=== PATIENT | female | born 1960 | race Caucasian/White ===

== ENCOUNTER → 2020-01-27 13:35 | Outpatient (BNVA) | payer BC, SELFPAY | PROVIDERS: Family Provider Nurse Practitioner Family; PCP Nurse Practitioner Family; Visit Provider Nurse Practitioner Family | DX: M25.512 Pain in left shoulder (principal) | CPT/HCPCS: 73030 ==

== ENCOUNTER 2020-02-24 06:49 | Outpatient (CLI) | payer BC, SELFPAY ==
--- NOTE | 2020-02-24 07:15 | MR_ITS ---
WS: [id number] MRI LEFT SHOULDER HISTORY: M25.519 Pain in unspecified shoulder COMPARISON: Radiographs 01/27/2020 TECHNIQUE: Multiplanar sequences of the shoulder joint are submitted. Hypertrophic changes involving the AC joint. There is increased soft tissue at the AC joint. There is increased T2 signal from edema and mild subacromial and subdeltoid bursal fluid distention. Small os teophytes from the distal clavicle and acromion with very minimal encroachment upon the distal supras pinatus. Mild increased signal and edema in the distal supraspinatus tendon but no full-thickness tea r. No edema or muscle atrophy. No os acromion. Biceps tendon is in normal position with very slight amount of increased fluid in the tendon sheath. Tiny amount of increased signal in the superior labrum centrally is indeterminate but unlikely a tear. No marrow edema in the glenoid or humeral head. Mild narrowing of the glenohumeral joint. MR/MR shoulder LT wo con* [id number] IMPRESSION: 1. Mild AC joint sprain. 2. Mild encroachment upon the supraspinatus by osteophytes at the AC joint. 3. Small amount of subacromial subdeltoid fluid. 4. Mild distal supraspinatus tendinopathy. 5. Tiny amount of increased signal in the superior labrum. Unlikely labral tea r.
== END 2020-02-24 06:50 | disposition home or self-care (01) ==
LOC: RADSHAW 06:54
PROVIDERS: PCP Nurse Practitioner Family; Visit Provider Orthopaedic Surgery
DX: M25.512 Pain in left shoulder (principal); S43.52XA Sprain of left acromioclavicular joint, initial encounter; X58.XXXA Exposure to other specified factors, initial encounter
CPT/HCPCS: 73221

== ENCOUNTER → 2020-11-10 08:51 | Outpatient (BNVA) | payer SELFPAY | PROVIDERS: PCP Nurse Practitioner Family; Referring Provider Nurse Practitioner Family; Visit Provider Dermatology | DX: Z01.89 Encounter for other specified special examinations (principal) | CPT/HCPCS: 36415 ==

== ENCOUNTER 2021-03-17 12:38 | Outpatient (CLI) | payer BC, SELFPAY ==
--- NOTE | 2021-03-17 13:00 | MM_ITS ---
WS: [id number] BILATERAL DIGITAL DIAGNOSTIC MAMMOGRAM MAMMOGRAPHY WITH CAD CLINICAL INFORMATION: N63.0 - Unspecified lump in unspecified breast. Palpable lump] breast. COMPARISON: March 21, 2019 TECHNIQUE: Bilateral CC, MLO, and ML views. FINDINGS: Scattered fibroglandular densities bilaterally. Palpable marker upper outer right breast posterior de pth. 9 mm focal asymmetric density adjacent to the palpable marker upper outer right breast posterior depth. Ultrasound is pending. Punctate and lucent center calcifications. Left breast is unchanged in appearance. ULTRASOUND BREAST RIGHT TECHNIQUE: Ultrasound right breast focused area of concern. CLINICAL INFORMATION: N63.0 - Unspecified lump in unspecified breast FINDINGS: Ultrasound right breast in the area of patient concern. Normal-appearing intramammary lymph node at t he 10:00 position measuring 6 mm. Adjacent to this, is a hypoechoic taller than wide lesion with a dodge spicious appearance measuring 1.0 x 0.7 x 0.8 cm at the 10:00 position 3 cm from the nipple. Recommen d further evaluation with ultrasound-guided biopsy. MM/[place] [id number] IMPRESSION: BI-RADS: 4-Suspicious Finding-Biopsy Should Be Considered FOLLOW UP: US Guided Biopsy Recommended RECOMMEND ULTRASOUND-GUIDED BIOPSY RIGHT BREAST LESION AT THE 10:00 POSITION.
--- NOTE | 2021-03-17 13:30 | US_ITS ---
WS: [id number] BILATERAL DIGITAL DIAGNOSTIC MAMMOGRAM MAMMOGRAPHY WITH CAD CLINICAL INFORMATION: N63.0 - Unspecified lump in unspecified breast. Palpable lump] breast. COMPARISON: March 21, 2019 TECHNIQUE: Bilateral CC, MLO, and ML views. FINDINGS: Scattered fibroglandular densities bilaterally. Palpable marker upper outer right breast posterior de pth. 9 mm focal asymmetric density adjacent to the palpable marker upper outer right breast posterior depth. Ultrasound is pending. Punctate and lucent center calcifications. Left breast is unchanged in appearance. ULTRASOUND BREAST RIGHT TECHNIQUE: Ultrasound right breast focused area of concern. CLINICAL INFORMATION: N63.0 - Unspecified lump in unspecified breast FINDINGS: Ultrasound right breast in the area of patient concern. Normal-appearing intramammary lymph node at t he 10:00 position measuring 6 mm. Adjacent to this, is a hypoechoic taller than wide lesion with a dodge spicious appearance measuring 1.0 x 0.7 x 0.8 cm at the 10:00 position 3 cm from the nipple. Recommen d further evaluation with ultrasound-guided biopsy. US/US breast RT limited* [id number] IMPRESSION: BI-RADS: 4-Suspicious Finding-Biopsy Should Be Considered FOLLOW UP: US Guided Biopsy Recommended RECOMMEND ULTRASOUND-GUIDED BIOPSY RIGHT BREAST LESION AT THE 10:00 POSITION.
== END 2021-03-17 12:39 | disposition home or self-care (01) ==
PROVIDERS: PCP Nurse Practitioner Family; Visit Provider Nurse Practitioner Family
DX: N63.11 Unspecified lump in the right breast, upper outer quadrant (principal); N63.20 Unspecified lump in the left breast, unspecified quadrant
CPT/HCPCS: 76642; 77066

== ENCOUNTER 2021-03-30 20:00 | Outpatient (CLI) | payer BC, SELFPAY | END 2021-03-30 20:01 | disposition home or self-care (01) | LOC: SLEEP 03-31 05:45 | PROVIDERS: PCP Nurse Practitioner Family; Visit Provider Nurse Practitioner Family | DX: G47.30 Sleep apnea, unspecified (principal) | CPT/HCPCS: 95810 ==

== ENCOUNTER 2021-04-05 12:38 | Outpatient (CLI) | payer BC, SELFPAY ==
--- NOTE | 2021-04-05 13:00 | US_ITS ---
WS: [id number] ULTRASOUND-GUIDED RIGHT BREAST BIOPSY HISTORY: N63.10 - Unspecified lump in the right breast, COMPARISON: 03/17/2021 Procedure, risks and complications are explained to the patient. Medications are reviewed. Consent is obtained. The mass in the RIGHT breast is localized with ultrasound. Mass localizes at 10:00. Skin is cleansed with ChloraPrep and anesthetized with 1% buffered lidocaine. Small dermatome is made. Under sterile c onditions mass is biopsied with a 14-gauge Achieve needle. Multiple core biopsies are performed. Mate rial placed in formalin and sent to pathology for review. No complications encountered. Breast tissue marker (Bard ultrasound enhanced ribbon): Single. Patient left the radiology suite with no complications. Patient is [place] [facility] [place] [facility] with any concerns. US/[place] [id number] IMPRESSION: 1. Uncomplicated core needle biopsy RIGHT breast biopsy of the mass at 10:00, 3 cm from the nipple. PATHOLOGY: Ductal carcinoma in situ, grade 2. No invasive carcinoma. Breast pro file and ancillary studies to be reported later. RECOMMENDATION: Surgical and oncologic evaluation.
[2021-04-12 09:18] LABS: Miscellaneous Test See Scanned Lab Rpt
== END 2021-04-05 12:39 | disposition home or self-care (01) ==
LOC: RAD 12:40
PROVIDERS: PCP Nurse Practitioner Family; Visit Provider Nurse Practitioner Family
DX: N63.11 Unspecified lump in the right breast, upper outer quadrant (principal); D05.11 Intraductal carcinoma in situ of right breast
CPT/HCPCS: 19083; 88305; 88361; 88374

== ENCOUNTER → 2021-04-16 09:51 | Outpatient (BNVA) | payer BC, SELFPAY | PROVIDERS: PCP Nurse Practitioner Family; Referring Provider Nurse Practitioner Family; Visit Provider Surgery | DX: D05.11 Intraductal carcinoma in situ of right breast (principal); Z11.52 Encounter for screening for COVID-19; N63.10 Unspecified lump in the right breast, unspecified quadrant | CPT/HCPCS: 87635 ==

== ENCOUNTER → 2021-04-21 11:12 | Outpatient (BNVA) | payer BC, SELFPAY | PROVIDERS: PCP Nurse Practitioner Family; Visit Provider Nurse Practitioner Family | DX: R19.7 Diarrhea, unspecified (principal); R39.9 Unspecified symptoms and signs involving the genitourinary system; Z11.52 Encounter for screening for COVID-19; R50.9 Fever, unspecified | CPT/HCPCS: 83630; 87493; 87506; 87635 ==

== ENCOUNTER → 2021-04-28 10:01 | Outpatient (BNVA) | payer BC, SELFPAY | PROVIDERS: PCP Nurse Practitioner Family; Visit Provider Surgery | DX: Z20.822 Contact with and (suspected) exposure to COVID-19 (principal); D05.11 Intraductal carcinoma in situ of right breast | CPT/HCPCS: 87635 ==

== ENCOUNTER 2021-05-05 06:57 | Day surgery (SDC) | payer BC, SELFPAY ==
[2021-04-20 10:48] VITALS: BMI 30.1
--- NOTE | 2021-05-05 | US_ITS ---
WS: [id number] ULTRASOUND-GUIDED RIGHT BREAST NEEDLE LOCALIZATION HISTORY: needle localization Procedure, risks and complications were explained to the patient. Consent is obtained. Skin is cleansed with ChloraPrep and anesthetized with 1% buffered lidocaine. Needle and guidewire pl aced to the area of concern with no complications. Ultrasound guidance performed during the needle lo calization. Guidewire is left within the lesion. Guidewire secured and no complications encountered. Patient is being transported to the OR suite. Localization is of the mass at 10:00, 3 cm from the nip ple. Specimen radiograph is also reviewed. Lesion appears to be within the specimen although difficult to visualize. RECOMMENDATIONS: Follow-up with Dr. Garcia and oncology. US/US breast surgical specimen IMPRESSION: 1. Uncomplicated wire localization of a mass at 10:00, 3 cm from the nipple. PATHOLOGY RESULTS: Ductal carcinoma in situ, the superior medial margin is posi tive. Lymphovascular invasion identified.
[2021-05-05 07:10] VITALS: BP 136/92; PULSE 79; RESP 18; TEMP 36.2; O2SAT 96
[2021-05-05] MEDS: sodium chloride 0.9% 1,000 ML 30 ML IV (07:33)
--- NOTE | 2021-05-05 07:38 | ECG_ITS ---
[facility] Test Date: 2021-05-05 Pat Name: Urszula Umaña Department: Room: Gender: Female In Service Educator: : 1960 Requested By: Frank Calles Order Number: [id number] Shilpa MD: JACQUIE KERNS Measurements Intervals [place] Rate: 68 P: 43 MS: 150 QRS: 24 QRSD: 103 T: 41 QT: 405 QTc: 433 Interpretive Statements SINUS RHYTHM No previous ECG available for comparison Electronically Signed On 05-05-2021 19:29:28 CDT by JACQUIE KERNS [id number]
--- NOTE | 2021-05-05 07:46 | US_ITS ---
WS: [id number] ULTRASOUND-GUIDED RIGHT BREAST NEEDLE LOCALIZATION HISTORY: needle localization Procedure, risks and complications were explained to the patient. Consent is obtained. Skin is cleansed with ChloraPrep and anesthetized with 1% buffered lidocaine. Needle and guidewire pl aced to the area of concern with no complications. Ultrasound guidance performed during the needle lo calization. Guidewire is left within the lesion. Guidewire secured and no complications encountered. Patient is being transported to the OR suite. Localization is of the mass at 10:00, 3 cm from the nip ple. Specimen radiograph is also reviewed. Lesion appears to be within the specimen although difficult to visualize. RECOMMENDATIONS: Follow-up with Dr. Garcia and oncology. US/[place] [id number] IMPRESSION: 1. Uncomplicated wire localization of a mass at 10:00, 3 cm from the nipple. PATHOLOGY RESULTS: Ductal carcinoma in situ, the superior medial margin is posi tive. Lymphovascular invasion identified.
--- NOTE | 2021-05-05 07:54 | W.PM.OPSUD ---
Surgery/Procedure H&P Update DATE OF PROCEDURE: May 05, 2021 DATE H&P PERFORMED: 04/16/21 H&P UPDATE INFORMATION: I have reviewed H&P completed within last 30 days, I have examined patient prior to procedure and No changes to prior documentation PREOP DIAGNOSIS: DCIS right breast PLANNED PROCEDURE: Operation Date: 05/05/21 11:30 Proposed Procedures p Breast Biopsy Needle Localization [id number] D05.11(Right) - Cory Garcia MD s Right Breast Lumpectomy(Right) - Cory Garcia MD
--- NOTE | 2021-05-05 08:12 | ANES.PREANE2 ---
Pre-Anesthetic Assessment Pre-Anesthetic Assessment: Height/Weight: Height 1.65 m Weight 89.811 kg Temp Pulse Resp BP Pulse Ox 97.2 F L 79 18 136/92 96 05/05/21 07:10 05/05/21 07:10 05/05/21 07:10 05/05/21 07:10 05/05/21 07:10 Preop Diagnosis: DCIS right breast Proposed Procedure: Operation Date: 05/05/21 11:30 Proposed Procedures p Breast Biopsy Needle Localization [id number] D05.11(Right) - Cory Garcia MD s Right Breast Lumpectomy(Right) - Cory Garcia MD Was Beta Ligia taken within 24 hours: N/A Was Clonidine taken within 24 hours: N/A Last intake: Intake Last Liquid Date 05/04/21 Last Liquid Time 23:15 Last Solid Date 05/04/21 Last Solid Time 23:15 Social: Social History: Tobacco and No alcohol Exam: Pre-Anes Outpt Exam: alert, oriented x 3 and regular rate & rhythm Airway: Submandibular: WNL Cervical ROM: WNL MP: 2 Dentition: False Pulmonary: Pulmonary: COPD and Sleep apnea Musc/skel: Musc/skel: YAJAIRA/CHRISSIE Anesthetic Plan: Anesthesia: Choice Risk of > 500 ml blood loss (7ml/kg in children): No Meds/Allergies Current Medications: Current Medications Generic Name Dose Route Start Last Admin Trade Name Freq PRN Reason Stop Dose Admin Sodium Chloride 1,000 mls @ 30 ml s/hr 05/05/21 07:15 05/05/21 07:33 Sodium Chloride 0.9% IV 05/06/21 07:14 30 mls/hr .Q24H SHAWN Administration PFSH Anesthesia PFSH: Medical History (Updated 04/21/21 @ 09:55 by YANICK Carrasco) DDD (degenerative disc disease), cervical Diarrhea Diarrhea Ductal carcinoma in situ (DCIS) of right breast Sleep apnea UTI symptoms UTI symptoms Vitamin D deficiency Surgical History History of appendectomy History of hysterectomy History of knee surgery Status post colonoscopy Social History Smoking and tobacco status: never smoked Second hand smoke exposure: No Smoking risk assessment/counseling performed?: No Alcohol intake: never Desire information about alcohol rehabilitation?: No Counseling given: No Desire information about substance/drug rehabilitation?: No Counseling given: No Data Anesthesia Cardiac Studies: No Data to Display
[2021-05-05] MEDS: lidocaine 1% INJ 20 mL SUBCUT (09:32)
--- NOTE | 2021-05-05 13:33 | PM.OP ---
Operative Report Date of procedure: May 05, 2021 Pre-op Diagnosis: DCIS right breast 10 o'clock position 3 cm from the nipple Post-op diagnosis: same Procedure Done: Wire localization lumpectomy right breast Specimens removed/disposition: Right breast mass 10 o'clock position short stitch superior, long stitch lateral Surgeon: Cory Garcia Anesthesia: General Condition: stable Disposition: PACU Procedure: The wire localization of the mammographic abnormality was performed by the radiologist under ultrasound guidance and the patient was transferred to operating room and placed under MAC after IV antibiotic had been administered. The right breast was prepped and draped in a manner . A curvilinear incision was made over the areolar margin at 10'o clock position, subcutaneous tissue was divided and skin flaps were raised superiorly and inferiorly. The localization wire was grasped through the incision and using electrocautery the wire along with the breast tissue containing mammographic abnormality was dissected free from the surrounding tissue. Using 2-0 silk suture, short stitch was placed superiorly and a long stitch was placed laterally.The wound was irrigated with saline, hemostasis ensured with electrocautery and subcutaneous tissues approximated using 3-0 running Vicryl suture and skin was closed using running subcuticular 4-0 Monocryl sutures and Dermabond. 1% lidocaine with 0.5% Marcaine was infiltrated at the lumpectomy cavity. Fluffs were used for pressure dressing. Patient was transferred to recovery room and stable condition The lumpectomy specimens were sent to mammography to obtain radiological confirmation of complete excision of the mammographic abnormality.
[2021-05-05 13:43] VITALS: BP 146/102; PULSE 71; RESP 16; TEMP 36.4; O2SAT 96
[2021-05-05 13:45] VITALS: BP 157/99; PULSE 72; RESP 17; O2SAT 95
[2021-05-05 13:50] VITALS: BP 149/92; PULSE 71; RESP 17; TEMP 36.4; O2SAT 96
[2021-05-05 14:00] VITALS: BP 119/80; PULSE 72; RESP 18; TEMP 36.4; O2SAT 95
[2021-05-05 14:14] VITALS: BP 126/82; PULSE 70; RESP 18; TEMP 36.4; O2SAT 97
--- NOTE | 2021-05-05 14:16 | ANE.PACU2 ---
Inpatient post-anesthesia follow up: Airway intact: Yes Vital signs: Temperature 97.5 F Pulse Rate 70 Respiratory Rate 18 Blood Pressure 126/82 Pulse Oximetry 97 Oxygen Delivery Me thod Room Air Oxygen Flow Rate Fraction of Inspir ed Oxygen Hydration adequate: Yes Nausea and vomiting: No Pain level: 2 Mental status: Baseline
== END 2021-05-05 14:34 | disposition home or self-care (01) ==
PROVIDERS: PCP Nurse Practitioner Family; Visit Provider Surgery
PROC: (CPT 19301; principal; 2021-05-05 11:20)
PROC: (CPT 19301; 2021-05-05 11:20)
DX: C50.911 Malignant neoplasm of unspecified site of right female breast (principal); J44.9 Chronic obstructive pulmonary disease, unspecified; G47.30 Sleep apnea, unspecified; M19.90 Unspecified osteoarthritis, unspecified site
CPT/HCPCS: 19301; 19285; 88305; 93005; C1889; J0690; J2405; J2704; J3010; J3490; J7030

== ENCOUNTER → 2021-05-13 08:19 | Outpatient (BNVA) | payer BC, SELFPAY | PROVIDERS: PCP Nurse Practitioner Family; Visit Provider Surgery | DX: Z11.52 Encounter for screening for COVID-19 (principal) | CPT/HCPCS: 87635 ==

== ENCOUNTER 2021-05-19 08:08 | Day surgery (SDC) | payer BC, SELFPAY ==
[2021-05-18 09:29] VITALS: BMI 29.6
[2021-05-19] VITALS (7 sets, daily range): BP systolic 118–150; BP diastolic 63–94; PULSE 62–78; RESP 17–18; TEMP 36.3–37.1; O2SAT 94–98
--- NOTE | 2021-05-19 09:17 | W.PM.OPSUD ---
Surgery/Procedure H&P Update DATE OF PROCEDURE: May 19, 2021 DATE H&P PERFORMED: 05/11/21 H&P UPDATE INFORMATION: I have reviewed H&P completed within last 30 days, I have examined patient prior to procedure and No changes to prior documentation PREOP DIAGNOSIS: Positive margin DCIS right breast PLANNED PROCEDURE: Operation Date: 05/19/21 09:55 Proposed Procedures p Reexcision of margins of right breast under mac 37890 N63.0(Right) - Cory Garcia MD
[2021-05-19] MEDS: sodium chloride 0.9% 1,000 ML 30 ML IV (09:34)
--- NOTE | 2021-05-19 09:36 | ANES.PREANE2 ---
Pre-Anesthetic Assessment Pre-Anesthetic Assessment: Height/Weight: Height 1.73 m Weight 88.451 kg Temp Pulse Resp BP Pulse Ox 98.7 F 74 18 118/80 98 05/19/21 09:34 05/19/21 09:34 05/19/21 09:34 05/19/21 09:34 05/19/21 09:34 Preop Diagnosis: Positive margin DCIS right breast Proposed Procedure: Operation Date: 05/19/21 09:55 Proposed Procedures p Reexcision of margins of right breast under mac 31057 N63.0(Right) - Cory Garcia MD Familial anesthetic complications: None Was Beta Ligia taken within 24 hours: N/A Was Clonidine taken within 24 hours: N/A Last intake: Intake Last Liquid Date 05/18/21 Last Liquid Time 22:30 Last Solid Date 05/18/21 Last Solid Time 22:30 Social: Social History: Tobacco and No alcohol Exam: Pre-Anes Outpt Exam: alert, oriented x 3, clear to auscultation bilaterally and regular rate & rhythm Airway: Cervical ROM: WNL MP: 2 Dentition: False Musc/skel: Musc/skel: OA/DJD Anesthetic Plan: ASA status: 2 Anesthesia: MAC Risk of > 500 ml blood loss (7ml/kg in children): No Meds/Allergies Current Medications: Current Medications Generic Name Dose Route Start Last Admin Trade Name Freq PRN Reason Stop Dose Admin Sodium Chloride 1,000 mls @ 30 ml s/hr 05/19/21 08:30 05/19/21 09:34 Sodium Chloride 0.9% IV 05/20/21 08:29 30 mls/hr .Q24H SHAWN Administration PFSH Anesthesia PFSH: Medical History (Updated 05/13/21 @ 08:08 by YANICK Carrasco) DDD (degenerative disc disease), cervical Diarrhea Ductal carcinoma in situ (DCIS) of right breast Severe sleep apnea Sleep apnea Vitamin D deficiency Surgical History (Updated 05/19/21 @ 09:21 by Cory Garcia MD) History of appendectomy History of hysterectomy History of knee surgery S/P lumpectomy, right breast (05/05/21) Reexcision for positive margin 05/19/2021 Status post colonoscopy Social History Smoking and tobacco status: current every day smoker Second hand smoke exposure: No Smoking risk assessment/counseling performed?: No Alcohol intake: never Desire information about alcohol rehabilitation?: No Counseling given: No Desire information about substance/drug rehabilitation?: No Counseling given: No Data Anesthesia Cardiac Studies: No Data to Display
[2021-05-19] MEDS: lidocaine 1% INJ 20 mL INJECTION (10:37)
--- NOTE | 2021-05-19 13:16 | ANE.PACU2 ---
Inpatient post-anesthesia follow up: Airway intact: Yes Vital signs: Temperature 97.4 F Pulse Rate 76 Respiratory Rate 18 Blood Pressure 125/63 Pulse Oximetry 98 Oxygen Delivery Me thod Room Air Oxygen Flow Rate 5 Fraction of Inspir ed Oxygen Hydration adequate: Yes Nausea and vomiting: No Pain level: 3 Mental status: Baseline
--- NOTE | 2021-05-19 13:46 | PM.OP ---
Operative Report Date of procedure: May 19, 2021 Pre-op Diagnosis: Positive margin DCIS right breast
--- NOTE | 2021-05-19 15:34 | PM.OP ---
Operative Report Date of procedure: 05/19/2021 Pre-op Diagnosis: Positive margin DCIS right breast Post-op diagnosis: same Procedure Done: Reexcision of margins of lumpectomy cavity right breast Specimens removed/disposition: 1. Medial margin, outer edge inked 2. Superior margin, outer edge inked 3. Anterior margin, outer edge ink 4. Lateral margin, outer edge inked Surgeon: Cory Garcia Anesthesia: MAC Condition: stable Disposition: PACU Procedure: The patient was taken to the operating room and placed under MAC after IV antibiotic had been administered. The existing incision on the right breast was opened using 15 blade, sutures were cut and the lumpectomy cavity was reopened. There was drainage of small amount of seroma. 1 cm shave margins were obtained from the medial, superior, anterior and lateral aspect of the lumpectomy cavity and the outer edge was inked. The wound was irrigated with saline and subcutaneous tissues approximated using interrupted 3-0 Vicryl suture and skin was closed using running subcuticular 4-0 Monocryl suture and Dermabond. The patient was extubated and transferred to recovery room in stable condition.
== END 2021-05-19 11:41 | disposition home or self-care (01) ==
PROVIDERS: PCP Nurse Practitioner Family; Visit Provider Surgery
PROC: (CPT 19301; principal; 2021-05-19 09:55)
DX: N64.89 Other specified disorders of breast (principal)
CPT/HCPCS: 19301; 88307; J0690; J2250; J2405; J2704; J3010; J3490; J7030

== ENCOUNTER 2021-06-18 08:53 | Outpatient (CLI) | payer BC, SELFPAY ==
--- NOTE | 2021-06-18 16:26 | ONC CON_ITS ---
Dr. Castro New Patient Note Patient: Urszula Umaña Unit #: [id number]: 1960 Dicatated By: Jad Castro M.D.Date of Visit: Jun 18, 2021 Onc MED New Patient/Consult Referring Physician: Dr. ROXANA GR M.D. Chief Complaint: Breast cancer. History of Present Illness: This is a 60-year-old woman with ductal carcinoma in situ of the right breast, ER/ND positive. She had presented with a knot in her right breast, in retrospect thought to perhaps have been an enlarged lymph node. She was evaluated with diagnostic mammogram and right breast ultrasound on 03/17/2021. By that time the lump was getting smaller. Mammogram showed a focal asymmetric density adjacent to the palpable marker in the upper outer quadrant right breast posterior depth measuring 9 mm. Ultrasound showed a normal-appearing intramammary lymph node at the 10 o'clock position measuring 6 mm. Adjacent to it at the 10 o'clock position 3 cm from the nipple was a hypoechoic taller than wide lesion with suspicious appearance measuring 1.0 x 0.7 x 0.8 cm. It was BI-RADS 4, suspicious. Ultrasound directed biopsy of the right breast on 04/05/2021 showed grade 2 ductal carcinoma in situ. There is no invasive carcinoma identified. The breast prognostic profile showed ER positive at 99% and ND positive at 99%. The Ki-67 was 9%. It was negative for overexpression of HER-2/christian. She then underwent right breast lumpectomy on 05/05/2021. Pathology again showed grade 2 ductal carcinoma in situ. It was reported that no invasive carcinoma was identified, though the report also reports that lymphovascular invasion was identified identified. The superior-medial margin was positive. With that finding, she underwent reexcision lumpectomy on 05/19/2021. The final margins were negative for malignancy. She is seen for further management. She has been feeling pretty good generally, though she does complain that she gets tired. She also does not sleep well at night. She apparently was found to have severe obstructive sleep apnea, but she has not yet been able to get a titration study for CPAP. She has normal activity, though. ECOG score is 0. She has good appetite. She recently lost some weight due to suspected food poisoning. She has not had fever. She does have hot flashes/sweating. She underwent hysterectomy/bilateral salpingo-oophorectomy in 1999. Prior to that she had received oral contraceptives, she did not have any hormone replacement therapy. She had her first at age 17. She reports having a smoker's cough. She does not complain of shortness of breath or chest pain. She has no GI complaints other than a little heartburn at times. She does report having some bladder leakage. She has arthritis, mainly in her knees and in her right elbow. She does not complain of headache or dizziness. She sometimes has numbness. She has been having some depression. Past Medical History: Her medical history includes degenerative arthritis, obstructive sleep apnea, and vitamin D deficiency. Past Surgical History: She underwent ultrasound directed right breast biopsy on 04/05/2021, right breast lumpectomy on 05/05/2021, and reexcision lumpectomy on 05/19/2021. Her other surgical/procedural history includes appendectomy, arthroscopic left knee surgery, colonoscopy in 2015, and hysterectomy/bilateral salpingectomy-oophorectomy in 1999. Medications: [facility] Ibuprofen 800 mg (of 200 mg) Tablet Oral PRN Allergies: HYDROcodone Bitartrate Social History: Ms. Umaña is . She has a history of smoking a pack and half of cigarettes daily for 40 years. She drinks alcohol occasionally. Family History: Father of lung cancer at age 76. Mother with heart disease at age 78. She has 2 brothers, both with hypertension. One sister is in good health. There is no history of breast or ovarian cancer in the family. Review Of Symptoms: Constitutional - She complains that she gets tired, she has normal activity. Her appetite is generally good. She recently had some weight loss associated with food poisoning. She has not had fever. She does have hot flashes and sweating. ECOG score is 0, Eyes - No change in vision, ENMT - No hearing loss or tinnitus. She complains that her sinuses are always stopped up at night. No mouth sores. No sore throat or difficulty swallowing, Hematologic/Lymphatic - No abnormal bruising or bleeding, Respiratory - No shortness of breath. She has a smoker's cough. No pleuritic pain or hemoptysis, Cardiovascular - No angina pain. No palpitations, Gastrointestinal - No nausea or vomiting. She has a little bit of heartburn. No diarrhea or constipation. No blood in the stool or black stools, Genitourinary (F) - No dysuria or hematuria. No urinary frequency. She does report having some leakage, Musculoskeletal - She has joint pain, mainly in the knees and right elbow, Integumentary - No skin rash or other skin changes, Neurologic - No headache or dizziness. She sometimes has numbness. No other focal neurologic symptoms, Psychiatric - No anxiety. She has some depression. She has difficulty sleeping. She had a sleep study which showed severe obstructive sleep apnea, but she has not yet been able to get a titration study for CPAP. Vital Signs: Performed on Jun 18, 2021 10:19: 2, 0, 30.05 (HIGH), 2.03 sq.m, 68 in, 96 %, 72 /min, 17 /min, 128/79 mm(hg), 96 F (LOW), and 197.6 lbs (HIGH). Physical Examination: Constitutional - She looks pretty good generally, Eyes - Sclerae nonicteric. Conjunctivae clear, ENMT - No lesions noted in the oral cavity, Neck - No mass or thyromegaly, Hematologic/Lymphatic - No cervical or clavicular adenopathy, Respiratory - Lungs are clear but breath sounds are diminished bilaterally, Cardiovascular - Heart rhythm is regular. There is no murmur, gallop, or rub noted, Breasts - There are no breast masses noted. There is no axillary adenopathy, Abdomen - Soft and non-tender. Liver and spleen are not enlarged. There is no abdominal mass or ascites noted and there is no inguinal adenopathy, Back/Spine - No spine or CVA tenderness noted, Extremities - No edema. Dorsalis pedis pulses are palpable bilaterally, Integumentary - No rashes. No suspicious skin lesions noted, Neurologic - No focal neurologic deficits noted. Problem List: 1. Grade 2 ductal carcinoma in situ of the right breast. 2. Degenerative arthritis. 3. Obstructive sleep apnea. 4. She has a significant smoking history and based on her exam, she likely has COPD. Problems Addressed with this Encounter and Plan: 1. Patient with grade 2 ductal carcinoma in situ of the right breast, ER/ND positive. She underwent right breast lumpectomy on 05/05/2021 followed by reexcision lumpectomy on 05/19/2021. The final margins were negative. The pathology results were reviewed with the patient, and we discussed the clinical implications. She has ductal carcinoma in situ which has been completely resected. As there is potential risk for recurrence, she may potentially benefit with adjuvant radiation and/or adjuvant hormonal therapy. With regard to the radiation, I am going to request a Decision Rx study. If that shows higher risk disease, adjuvant radiation will be recommended. If it is low risk, she will have the option to omit it. In either case, there is also the potential for adjuvant hormonal therapy which has been shown to reduce the risk for risk of ipsilateral recurrence or development of contralateral breast cancer, and it potentially reduces the need for treatment of breast cancer in the future. However, it has not shown any survival benefit. The options for adjuvant hormonal therapy would include an aromatase inhibitor or tamoxifen, and I reviewed potential side effects associated with both forms of therapy. At this point I will just plan to have further discussion with her when the Decision Rx results are available. 2. She has a significant smoking history and I did discuss smoking cessation. I also will recommend a lung cancer screening CT. Signed By: Jad Castro M.D. <<Signature on File>>
== END 2021-06-18 08:54 | disposition home or self-care (01) ==
LOC: ONCMED 08:56
PROVIDERS: PCP Nurse Practitioner Family; Visit Provider Internal Medicine Medical Oncology
DX: D05.11 Intraductal carcinoma in situ of right breast (principal); G47.33 Obstructive sleep apnea (adult) (pediatric); M19.90 Unspecified osteoarthritis, unspecified site; E55.9 Vitamin D deficiency, unspecified; F17.210 Nicotine dependence, cigarettes, uncomplicated
CPT/HCPCS: 99205

== ENCOUNTER 2021-07-09 11:02 | Outpatient (CLI) | payer BC, SELFPAY ==
--- NOTE | 2021-07-09 13:13 | ONC FU_ITS ---
Dr. Castro Patient Follow-Up Note Patient: Urszula Umaña Unit #: [id number]: 1960 Dicatated By: Jad Castro M.D.Date of Visit:Jul 09, 2021 Onc Med Follow-up/Prog Note Chief Complaint: Breast cancer. History of Present Illness: This is a 60-year-old woman with ductal carcinoma in situ of the right breast, ER/VT positive. She had presented with a knot in her right breast, in retrospect thought to perhaps have been an enlarged lymph node. She was evaluated with diagnostic mammogram and right breast ultrasound on 03/17/2021. By that time the lump was getting smaller. Mammogram showed a focal asymmetric density adjacent to the palpable marker in the upper outer quadrant right breast posterior depth measuring 9 mm. Ultrasound showed a normal-appearing intramammary lymph node at the 10 o'clock position measuring 6 mm. Adjacent to it at the 10 o'clock position 3 cm from the nipple was a hypoechoic taller than wide lesion with suspicious appearance measuring 1.0 x 0.7 x 0.8 cm. It was BI-RADS 4, suspicious. Ultrasound directed biopsy of the right breast on 04/05/2021 showed grade 2 ductal carcinoma in situ. There is no invasive carcinoma identified. The breast prognostic profile showed ER positive at 99% and VT positive at 99%. The Ki-67 was 9%. It was negative for overexpression of HER-2/christian. She then underwent right breast lumpectomy on 05/05/2021. Pathology again showed grade 2 ductal carcinoma in situ. It was reported that no invasive carcinoma was identified, though the report also reports that lymphovascular invasion was identified identified. The superior-medial margin was positive. With that finding, she underwent reexcision lumpectomy on 05/19/2021. The final margins were negative for malignancy. I had seen her initially on 06/18/2021. I recommended that she have additional evaluation with a DCISionRT study. Those results have just become available, and it showed a recurrence score of 2.3, low risk, corresponding to a 10-year total recurrence risk of 11% with breast conserving surgery alone and 7% risk with breast conserving surgery and radiation. The 10-year risk for invasive cancer only was reported at 6% with surgery alone and 4% with surgery and radiation. In the meantime, I also had further discussion with the pathologist regarding the reported presence of lymphovascular invasion and after further review the diagnosis was amended to ductal carcinoma in situ with microinvasion. She is seen for review of the DCISionRT results and to discuss further management of her breast cancer. Her other medical illnesses have been limited to obstructive sleep apnea, degenerative arthritis, and vitamin D deficiency. Her prior surgeries include hysterectomy and bilateral salpingo-oophorectomy in 1999. She did not receive any hormone replacement therapy. Medications: [facility] Ibuprofen 800 mg (of 200 mg) Tablet Oral PRN Allergies: HYDROcodone Bitartrate Vital Signs: Performed on Jul 09, 2021 11:20 Height - 68.00 in Weight - 198.4 lbs (HIGH) BSA - 2.04 sq.m BMI - 30.17 (HIGH) Temperature - 97.2 F (LOW) Pulse - 84 /min Respiration - 17 /min BP - 135/86 mm(hg) Pain - 0 Fatigue - 6 Problem List: 1. Ductal carcinoma in situ of the right breast, grade 2, with microinvasion, ER/VT positive. 2. Degenerative arthritis. 3. Obstructive sleep apnea. 4. She has a significant smoking history and based on her exam, she likely has COPD. Problems Addressed with this Encounter and Plan: Patient with ductal carcinoma in situ of the right breast, grade 2, with microinvasion, ER/VT positive. She underwent right breast lumpectomy on 05/05/2021 followed by reexcision lumpectomy on 05/19/2021. The final margins were negative. Her DCISionRT was low risk corresponding to a 10-year total recurrence risk of 11% with breast conserving surgery alone and 7% risk with breast conserving surgery and radiation. The 10-year risk for invasive cancer only was reported at 6% with surgery alone and 4% with surgery and radiation. The results of the DCISionRT study and the final pathology were reviewed with the patient. We discussed the clinic implications and recommendations for further management. Given the low risk DCISionRT score and the limited benefit with adjuvant radiation, she prefers to omit the radiation therapy. With a diagnosis amended to DCIS with microinvasion, she is recommended to have adjuvant endocrine therapy, initially with an aromatase inhibitor. We discussed the fact that AI therapy can cause or worsen osteoporosis and that it also can cause joint pain as a side effect, among others. She will need a baseline DEXA scan, as she is surgically postmenopausal and estrogen deficient. She will also have baseline laboratory studies to include CBC, comprehensive metabolic profile, and 25-hydroxy vitamin D level. She will then start treatment with anastrozole 1 mg daily. She will be given treatment for bone health as indicated. She will be scheduled for a 3-month interval follow-up visit. Signed By: Jad Castro M.D. <<Signature on File>>
== END 2021-07-09 11:03 | disposition home or self-care (01) ==
LOC: ONCMED 11:06
PROVIDERS: PCP Nurse Practitioner Family; Visit Provider Internal Medicine Medical Oncology
DX: C50.811 Malignant neoplasm of overlapping sites of right female breast (principal); Z17.0 Estrogen receptor positive status [ER+]; Z90.11 Acquired absence of right breast and nipple; Z79.811 Long term (current) use of aromatase inhibitors; M19.90 Unspecified osteoarthritis, unspecified site; G47.33 Obstructive sleep apnea (adult) (pediatric); F17.210 Nicotine dependence, cigarettes, uncomplicated; J44.9 Chronic obstructive pulmonary disease, unspecified; Z79.899 Other long term (current) drug therapy
CPT/HCPCS: 99214

== ENCOUNTER 2021-07-22 10:01 | Outpatient (CLI) | payer BC, SELFPAY ==
--- NOTE | 2021-07-22 10:17 | XR_ITS ---
WS: [id number] DEXA (DUAL ENERGY X-RAY ABSORPTIOMETRY) Bone mineral density was performed using a [employer] machine. HISTORY: ASYMPTOMATIC MENOPAUSE, ESTROGEN deficiency COMPARISON: None available. Lumbar spine BMD (L1-L4): 0.906 g/cm2 T score: -2.3 Z score: -2.0 Total hip BMD: Left: 0.798 g/cm2. T score: -1.7 Z score: -1.4 Right: 0.822 g/cm2. T score: -1.5 Z score: -1.2 10 year probability of a major osteoporotic fracture is 13%. XR/XR DEXA axial skeleton* [id number] IMPRESSION: OSTEOPENIA based upon the WHO classification for females.
== END 2021-07-22 10:02 | disposition home or self-care (01) ==
PROVIDERS: PCP Nurse Practitioner Family; Visit Provider Internal Medicine Medical Oncology
DX: Z78.0 Asymptomatic menopausal state (principal); M85.80 Other specified disorders of bone density and structure, unspecified site
CPT/HCPCS: 77080

== ENCOUNTER 2021-10-06 13:38 | Outpatient (CLI) | payer BC, SELFPAY ==
--- NOTE | 2021-10-06 17:52 | ONC FU_ITS ---
Dr. Castro Patient Follow-Up Note Patient: Urszula Umaña Unit #: [id number]: 1960 Dicatated By: Jad Castro M.D.Date of Visit:Oct 06, 2021 Onc Med Follow-up/Prog Note Chief Complaint: Breast cancer. History of Present Illness: This is a 61 year-old woman with ductal carcinoma in situ of the right breast, ER/AL positive. She had presented with a knot in her right breast, in retrospect thought to perhaps have been an enlarged lymph node. She was evaluated with diagnostic mammogram and right breast ultrasound on 03/17/2021. By that time the lump was getting smaller. Mammogram showed a focal asymmetric density adjacent to the palpable marker in the upper outer quadrant right breast posterior depth measuring 9 mm. Ultrasound showed a normal-appearing intramammary lymph node at the 10 o'clock position measuring 6 mm. Adjacent to it at the 10 o'clock position 3 cm from the nipple was a hypoechoic taller than wide lesion with suspicious appearance measuring 1.0 x 0.7 x 0.8 cm. It was BI-RADS 4, suspicious. Ultrasound directed biopsy of the right breast on 04/05/2021 showed grade 2 ductal carcinoma in situ. There is no invasive carcinoma identified. The breast prognostic profile showed ER positive at 99% and AL positive at 99%. The Ki-67 was 9%. It was negative for overexpression of HER-2/christian. She then underwent right breast lumpectomy on 05/05/2021. Pathology again showed grade 2 ductal carcinoma in situ. It was reported that no invasive carcinoma was identified, though the report also reports that lymphovascular invasion was identified identified. The superior-medial margin was positive. With that finding, she underwent reexcision lumpectomy on 05/19/2021. The final margins were negative for malignancy. I had seen her initially on 06/18/2021. I recommended that she have additional evaluation with a DCISionRT study. That study showed a recurrence score of 2.3, low risk, corresponding to a 10-year total recurrence risk of 11% with breast conserving surgery alone and 7% risk with breast conserving surgery and radiation. The 10-year risk for invasive cancer only was reported at 6% with surgery alone and 4% with surgery and radiation. In the meantime, I also had further discussion with the pathologist regarding the reported presence of lymphovascular invasion and after further review the diagnosis was amended to ductal carcinoma in situ with microinvasion. Given those findings, she was recommended to have adjuvant hormonal therapy, but she was given the option to omit radiation. Her other medical illnesses have been limited to obstructive sleep apnea, degenerative arthritis, and vitamin D deficiency. Her prior surgeries include hysterectomy and bilateral salpingo-oophorectomy in 1999. She did not receive any hormone replacement therapy. She has history of smoking 1-1/2 packs of cigarettes daily for 40 years. She has been cutting down, and she is trying to quit. INTERIM HISTORY: She began adjuvant hormonal therapy with anastrozole 1 mg daily on 08/12/2021. Her baseline DEXA scan showed osteopenia with T score -2.3 in the lumbar spine, -1.7 in the left hip, and -1.5 in the right hip. Her laboratory studies showed a slightly low 25 hydroxy vitamin D level at 26 ng/mL. As such, she began treatment for bone health with alendronate 70 mg weekly, and she also began vitamin D supplementation. She is seen for a follow-up visit. She has multiple complaints. Probably the most significant is that she developed a lot of depression within the first 2 weeks after starting the anastrozole. She says she became a major ball bag, but it has since then gotten a little better. Nonetheless, she still has frequent episodes of crying. She says she is not having any suicidal thoughts. She also has been having significant musculoskeletal pain, including the neck and left shoulder and her left knee. She also has aching in her lower back. She gets some benefit with ibuprofen, and thus far the pain is tolerable, but it is severe enough to limit her activity. She is able to do some housework, though with difficulty. ECOG score is 1. Her appetite has decreased. She has not had fever. She is having some hot flashes, though not as bad now. She always has sinus drainage. She has not had sore mouth or throat. She has a smokers cough. She has some shortness of breath, but her breathing is the same. She does not complain of chest pain. She has occasional heartburn. Bowel and bladder function have been okay, though she does note that her urine has had a stronger odor. She does not complain of headache or dizziness. She is having some numbness in her left leg. Medications: [facility] Ibuprofen 800 mg (of 200 mg) Tablet Oral PRN, Vitamin D Tablet Oral daily Allergies: HYDROcodone Bitartrate Vital Signs: Performed on Oct 06, 2021 13:59 Height - 68.00 in Weight - 200.0 lbs (HIGH) BSA - 2.04 sq.m BMI - 30.41 (HIGH) Temperature - 98.2 F (LOW) Pulse - 93 /min Respiration - 18 /min BP - 128/83 mm(hg) O2 Sat - 96 % Pain - 5 Fatigue - 7 Physical Examination: Constitutional - She looks pretty good generally, Eyes - Sclerae nonicteric. Conjunctivae clear, ENMT - No lesions noted in the oral cavity, Hematologic/Lymphatic - No cervical, clavicular, or axillary adenopathy, Respiratory - Lungs sound clear with diminished air movement bilaterally, Cardiovascular - Heart rhythm is regular. There is no murmur, gallop, or rub noted, Abdomen - Soft. Liver and spleen are not enlarged. There is no abdominal mass or ascites noted and there is no inguinal adenopathy, Extremities - No edema, Neurologic - No focal neurologic deficits noted. Problem List: 1. Ductal carcinoma in situ of the right breast, grade 2, with microinvasion, ER/AL positive. 2. Degenerative arthritis. 3. Obstructive sleep apnea. 4. She has a significant smoking history and based on her exam, she likely has COPD. 5. Osteopenia. 6. Vitamin D deficiency. Problems Addressed with this Encounter and Plan: 1. Patient with ductal carcinoma in situ of the right breast, grade 2, with microinvasion, ER/AL positive. She underwent right breast lumpectomy on 05/05/2021 followed by reexcision lumpectomy on 05/19/2021. The final margins were negative. Her DCISionRT was low risk corresponding to a 10-year total recurrence risk of 11% with breast conserving surgery alone and 7% risk with breast conserving surgery and radiation. The 10-year risk for invasive cancer only was reported at 6% with surgery alone and 4% with surgery and radiation. Based on the results of the DCISionRT study and the final pathology, she was recommended to have adjuvant hormonal therapy, but she was given the option to omit radiation. She has not began treatment with anastrozole 1 mg daily on 08/12/2021. Side effects thus far have included fatigue, depression, and musculoskeletal pain. The latter has been severe enough to limit her activity, though at this point it is tolerable. As such, she will continue her adjuvant hormonal therapy with anastrozole 1 mg daily. She will start venlafaxine ER 75 mg daily for the depression. She will be scheduled for a follow-up visit in 3 months. 2. Her baseline bone density study showed evidence of osteopenia, and her laboratory studies showed vitamin D deficiency. She currently is on treatment with alendronate 70 mg daily together with vitamin D3 1000 units daily. 3. She has obstructive sleep apnea. She is in need of a titration study, and I will see if I get that scheduled. Signed By: Jad Castro M.D. <<Signature on File>>
== END 2021-10-06 13:39 | disposition home or self-care (01) ==
LOC: ONCMED 13:42
PROVIDERS: PCP Nurse Practitioner Family; Visit Provider Internal Medicine Medical Oncology
DX: D05.11 Intraductal carcinoma in situ of right breast (principal); Z17.0 Estrogen receptor positive status [ER+]; G47.33 Obstructive sleep apnea (adult) (pediatric); F17.210 Nicotine dependence, cigarettes, uncomplicated; M85.80 Other specified disorders of bone density and structure, unspecified site; E55.9 Vitamin D deficiency, unspecified; Z79.899 Other long term (current) drug therapy
CPT/HCPCS: 99214

== ENCOUNTER 2021-11-02 12:51 | Outpatient (CLI) | payer BC, SELFPAY ==
--- NOTE | 2021-11-02 13:10 | XR_ITS ---
WS: [id number] Cervical spine, 7 views including AP, odontoid, both obliques, and lateral views in flexion, extensio n and neutral position, 11/02/2021 Clinical Data: M79.603 - Pain in arm, unspecified Comparison: Soft tissue the neck, 10/23/2017. Findings: No compression fractures are seen. The disc heights are normal. There is no prevertebral so ft tissue swelling. The odontoid is unremarkable. The soft tissues of the neck and the lung apices ar e normal. The oblique films show bilateral foraminal narrowing at C6-C7. On flexion and extension there is no l imitation of motion or subluxation. There are small calcifications bilaterally in the region of the p arotid glands. XR/XR cervical spine min 6V [id number] Impression: 1. Negative cervical spine fracture. 2. Negative for limitation of motion or subluxation on flexion or extension. 3. Minimal bilateral foraminal encroachment at C6-C7.
--- NOTE | 2021-11-02 13:10 | XR_ITS ---
WS: [id number] XR lumbar spine 6V w f/e [id number] REASON FOR EXAM: M54.50 - Low back pain, unspecified FINDINGS: Straightening of the normal lordosis of the lumbar spine on the lateral view. Mild wedge-shaped compression deformity of L3. Mild to moderate narrowing of the intervertebral disc space at L3-L4 with anterior osteophytes. Previous surgical alteration of posterior elements at L5-S1. No spondylolysis and no significant list hesis. No abnormal vertebral body with flexion and extension. XR/XR lumbar spine 6V w f/e [id number] IMPRESSION: Degenerative spondylosis at L3-L4. Previous surgery at L5-S1. Wedge-shaped compression deformity of L3 of unknown chronicity.
== END 2021-11-02 12:52 | disposition home or self-care (01) ==
PROVIDERS: PCP Nurse Practitioner Family; Visit Provider Nurse Practitioner Family
DX: M25.512 Pain in left shoulder (principal); M79.603 Pain in arm, unspecified; R20.0 Anesthesia of skin; M54.50 Low back pain, unspecified; M47.896 Other spondylosis, lumbar region
CPT/HCPCS: 72052; 72114

== ENCOUNTER 2022-02-03 13:28 | Oncology outpatient (recurring) (ONCR) | payer BC, SELFPAY | END 2022-02-17 23:59 | disposition home or self-care (01) | PROVIDERS: PCP Nurse Practitioner Family; Visit Provider Nurse Practitioner Family | DX: Z53.9 Procedure and treatment not carried out, unspecified reason (principal) ==

== ENCOUNTER → 2022-02-09 09:09 | Outpatient (BNVA) | payer BC, SELFPAY | PROVIDERS: PCP Nurse Practitioner Family; Visit Provider Nurse Practitioner Family | DX: R53.83 Other fatigue (principal); M54.50 Low back pain, unspecified; M51.36 Other intervertebral disc degeneration, lumbar region; M50.30 Other cervical disc degeneration, unspecified cervical region; M19.90 Unspecified osteoarthritis, unspecified site | CPT/HCPCS: 80053; 82607; 84443; 85025 ==

== ENCOUNTER 2022-08-26 14:47 | Emergency (ER) | payer BC, SELFPAY ==
[2022-08-26 14:52] VITALS: BP 143/83; PULSE 79; RESP 18; TEMP 36.3; O2SAT 96; BMI 31.1
--- NOTE | 2022-08-26 16:06 | XRR_ITS ---
PROCEDURE INFORMATION: Exam: XR Chest Exam date and time: 08/26/2022 4:18 PM Age: 61 years old Clinical indication: Pain; Chest pressure; Additional info: Chest pain TECHNIQUE: Imaging protocol: Radiologic exam of the chest. Views: 1 view. COMPARISON: CR XR cervical spine min 6V [id number] 11/02/2021 1:17 PM FINDINGS: Lungs: There is mild linear atelectasis at both lung bases. There is no pulmonary venous congestion. Pleural spaces: Unremarkable. No pleural effusion. No pneumothorax. Heart/Mediastinum: Heart is within normal limits of size. Bones/joints: Unremarkable. XR/XR chest 1V portable [id number] IMPRESSION: Basilar atelectasis.
--- NOTE | 2022-08-26 16:15 | W.ED.CHESTPA ---
HPI - Chest Pain General: Chief Complaint: Chest Pain Stated Complaint: sob w/ chest pain Time Seen by Provider: 08/26/22 16:06 Source: patient Mode of arrival: ambulatory History of Present Illness: 61-year-old female presents emergency room complaining of pain in the right upper chest worse when she takes a deep breath or when she moves is also reproducible with palpation.'s been going on for about a week and 1/2 to 2 weeks now. She moves her right arm it worsens it as well. She has been taking large amounts of ibuprofen with minimal relief. She denies any fever sweats chills nausea vomiting or diarrhea. No previous episodes like this. Patient is a smoker is nondiabetic no known history of coronary disease MD complaint: chest pain Onset (ago): week(s) (2) Timing of current episode: episodic Pain location: right chest Pain radiation: none Severity: moderate Quality: sharp Relieving factors: rest Exacerbating factors: inspiration, palpation and movement Associated symptoms: Deny abdominal pain, diaphoresis, dyspnea, fever(s), leg edema, nausea, palpitations, sense of impending doom, syncope or vomiting Review of Systems Const: Denies: fever(s), chills, fatigue, malaise or diaphoresis ENMT: Denies: throat pain, ear or mastoid pain, nasal discharge or nasal congestion Card: Reports: chest pain; Denies: palpitations or syncope Resp: Denies: dyspnea GI: Denies: abdominal pain, nausea or vomiting : Denies: flank pain, difficulty voiding, dysuria, urinary frequency or urinary urgency Skin/Breast: Denies: rash or pruritus PFSH ED PFSH: Medical History Degenerative arthritis Degenerative joint disease of spine Depression Ductal carcinoma in situ (DCIS) of right breast GERD (gastroesophageal reflux disease) Incontinence of urine in female Obstructive sleep apnea Osteopenia Vitamin D deficiency Surgical History History of appendectomy History of hysterectomy with bilateral oophorectomy History of knee surgery Arthroscopic left knee surgery S/P lumpectomy, right breast (05/05/21) Reexcision for positive margin 05/19/2021 Status post colonoscopy Family History Other Suicide Denies family history of Psychiatric illness Lung disease Stroke Social History Smoking and tobacco status: current every day smoker (1 ppd, smoked x 40+ years) Second hand smoke exposure: No Smoking risk assessment/counseling performed?: No Alcohol intake: never Desire information about alcohol rehabilitation?: No Counseling given: No Desire information about substance/drug rehabilitation?: No Counseling given: No Physical Exam Const: GENERAL APPEARANCE: cooperative and comfortable ORIENTATION/CONSCIOUSNESS: Yes awake, Yes oriented to person, Yes oriented to place and Yes oriented to time HENMT: COMMON NORMALS: normocephalic, atraumatic, hearing grossly normal bilaterally, external ears normal, EAC's normal, TM's normal bilaterally, Normal nasal mucous membranes and turbinates present, moist oral mucous membranes and oropharynx normal HEAD & SCALP: normocephalic and atraumatic NOSE: Normal nasal mucous membranes and turbinates present EXTERNAL EAR: Yes external ears normal EXTERNAL AUDITORY CANAL: EAC's normal TYMPANIC MEMBRANE: TM's normal bilaterally Eye: COMMON NORMALS: Equal, round and reactive pupils present, EOMs intact bilaterally, conjunctivae normal and no scleral icterus CONJUNCTIVA: Yes conjunctivae normal PUPIL: Yes Equal, round and reactive pupils present Neck/C-Spine: COMMON NORMALS: full ROM, no lymphadenopathy and supple Lymph: LYMPHATIC: no lymphadenopathy noted and no lymphedema noted Chest: OTHER: Reproducible pain palpation of the right upper chest Resp: COMMON NORMALS: normal respiratory effort, No retractions, No use of accessory muscles and clear to auscultation bilaterally AUSCULTATION: clear to auscultation bilaterally Cardio: COMMON NORMALS: regular rate, regular rhythm and No murmurs present (Cardio) RATE: regular rate RHYTHM: regular rhythm GI: COMMON NORMALS: Soft to palpation and No hepatosplenomegaly present AUSCULTATION: Yes normoactive bowel sounds PALPATION: Yes Soft to palpation, No Tenderness to palpation present (GI), No Guarding due to palpation present (GI) and Yes No hepatosplenomegaly present Extremity: COMMON NORMALS: normal to inspection, capillary refill normal, no clubbing, cyanosis or edema, no calf tenderness and no pedal edema Neuro: SENSORIUM/ORIENTATION: Yes oriented to person, Yes oriented to place and Yes oriented to time Skin: COMMON NORMALS: no rashes or lesions noted GENERAL SKIN EXAM: no rashes or lesions noted Course Vital Signs: Vital signs: Vital Signs Temperature 97.4 F L 08/26/22 14:52 Pulse Rate 75 08/26/22 17:25 Respiratory Rate 18 08/26/22 17:25 Blood Pressure 138/77 08/26/22 17:25 Pulse Oximetry 94 08/26/22 17:25 Oxygen Delivery Me thod 08/26/22 14:52 MDM - Chest Pain Medical Decision Making Labs imaging and EKG reviewed as found on the chest chart. Patient has reproducible chest pain with palpation there is no evidence of EKG changes. Discharge patient home follow-up with primary care Medical Records I reviewed the patient's medical records. Lab Data I reviewed the patient's lab results. 08/26/22 16:20 08/26/22 16:20 Radiology Impressions Chest X-Ray 08/26/22 16:06 IMPRESSION: Basilar atelectasis. Laboratory Results WBC 10.3 10^3/uL (4.0-10.0) H 08/26/22 16:20 RBC 4.93 10^6/uL (4.1-5.3) 08/26/22 16:20 Hgb 14.9 g/dL (11.5-15.3) 08/26/22 16:20 Hct 45.9 % (37.0-47.0) 08/26/22 16:20 MCV 93.1 fl (81-99) 08/26/22 16:20 MCH 30.2 pg (28.0-34.0) 08/26/22 16:20 MCHC 32.5 g/dL (30.0-36.0) 08/26/22 16:20 RDW 13.6 % (12.1-15.1) 08/26/22 16:20 Plt Count 260 10^3/cmm (130-400) 08/26/22 16:20 MPV 10.3 fL (7.4-10.4) 08/26/22 16:20 Neut % (Auto) 50.3 % 08/26/22 16:20 Lymph % (Auto) 38.9 % 08/26/22 16:20 Garrard % (Auto) 8.1 % 08/26/22 16:20 Eos % (Auto) 1.1 % 08/26/22 16:20 Baso % (Auto) 0.8 % 08/26/22 16:20 Neut # (Auto) 5.17 10^3/uL (1.8-7.7) 08/26/22 16:20 Lymph # (Auto) 4.0 10^3/uL (0.8-4.8) 08/26/22 16:20 Garrard # (Auto) 0.8 10^3/uL (0.2-0.9) 08/26/22 16:20 Eos # (Auto) 0.1 10^3/uL (0.0-0.8) 08/26/22 16:20 Baso # (Auto) 0.1 10^3/uL (0.0-0.1) 08/26/22 16:20 Nucleated RBC % (auto) 0 % 08/26/22 16:20 Nucleated RBCs # 0.0 /100WBC 08/26/22 16:20 Sodium 135 mmol/L (136-145) L 08/26/22 16:20 Potassium 4.1 mmol/L (3.5-5.1) 08/26/22 16:20 Chloride 105 mmol/L (98-107) 08/26/22 16:20 Carbon Dioxide 21 mmol/L (22-29) L 08/26/22 16:20 Anion Gap 13.1 (5-19) 08/26/22 16:20 BUN 18 mg/dL (6-20) 08/26/22 16:20 Creatinine 0.6 mg/dL (0.5-0.9) 08/26/22 16:20 GFR Calculation 102.3 mL/min (90-130) 08/26/22 16:20 Glucose 82 mg/dL (65-115) 08/26/22 16:20 Calculated Osmolality 281 mOsm/kg (285-295) L 08/26/22 16:20 Calcium 8.9 mg/dL (8.5-10.5) 08/26/22 16:20 Total Bilirubin 0.2 mg/dL (0.15-1.2) 08/26/22 16:20 AST 19 U/L (0-32) 08/26/22 16:20 ALT 22 U/L (0-33) 08/26/22 16:20 Alkaline Phosphatase 84 U/L (35-105) 08/26/22 16:20 Troponin T Baseline 6 ng/L (0-10) 08/26/22 16:20 Total Protein 7.5 g/dL (6.6-8.7) 08/26/22 16:20 Albumin 4.3 g/dL (3.5-5.2) 08/26/22 16:20 Globulin 3.2 g/dL (1.3-4.6) 08/26/22 16:20 Discharge Plan Discharge Patient Disposition: Home Clinical Impression: Chest wall pain Condition: Stable Prescriptions: New tramadol 50 mg tablet 50 mg PO Q6H PRN (Reason: pain) Qty: 10 0RF No Action ibuprofen 800 mg tablet 800 mg PO Q8H PRN (Reason: Pain) cholecalciferol (vitamin D3) 25 mcg (1,000 unit) capsule 25 mcg PO DAILY anastrozole 1 mg tablet 1 mg PO DAILY Qty: 30 6RF venlafaxine 37.5 mg capsule,extended release 24hr See Rx Instructions PO DAILY Qty: 30 0RF Rx Instructions: Take one tablet daily for 2 weeks; then one tablet every other day for 2 weeks then stop. celecoxib [Celebrex] 200 mg capsule 200 mg PO BID Qty: 60 5RF oxybutynin chloride 5 mg tablet 5 mg PO DAILY Qty: 30 5RF alendronate 70 mg tablet 70 mg PO .weekly Qty: 12 0RF Rx Instructions: ON MONDAY famotidine 20 mg tablet 20 mg PO DAILY PRN (Reason: Acid Reflux) Discharge Orders: Discharge ED (Routine); Ordered 08/26/22 Ordered By: Joby Amaya Referrals: Matthew Allen, YANICK [Primary Care Provider] - Patient Instructions: Opioid Safety, Pain Management Activity Restrictions/Additional Instructions: You were seen today for chest discomfort your labs and EKG were normal and chest discomfort was reproducible with deep inspiration and palpation which is indicative of musculoskeletal wall chest pain. Recommend using Ultram or the Celebrex you have previously been prescribed for the discomfort you can also try ice or heat. Follow-up with your primary care doctor as needed. Coding Level of Care Code ED Ammonium Nitrate Crystallizer for Nohemi Galeana
[2022-08-26] MEDS: aspirin 81 mg Chew Tablet 324 MG PO (16:16)
--- NOTE | 2022-08-26 16:18 | ECG_ITS ---
[facility] Test Date: 2022-08-26 Pat Name: Urszula Umaña Department: Room: Gender: Female Systems Integrator: : 1960 Requested By: Joby Caldera Order Number: [id number] Shilpa MD: Marisela Dent M.D. Measurements Intervals [place] Rate: 65 P: 143 AR: 158 QRS: 52 QRSD: 92 T: 109 QT: 398 QTc: 416 Interpretive Statements ECTOPIC ATRIAL RHYTHM POSSIBLE LEFT ATRIAL ENLARGEMENT [-0.1mV P-WAVE IN V1/V2] Compared to ECG 05/05/2021 07:55:06 Ectopic atrial rhythm now present Sinus rhythm no longer present Electronically Signed On 08-26-2022 16:46:38 [facility] by Marisela Dent M.D. [id number]
[2022-08-26 16:31] LABS: Basophils # 0.1 10^3/uL (0.0-0.1); Basophils % 0.8 %; Eosinophils # 0.1 10^3/uL (0.0-0.8); Eosinophils % 1.1 %; Hematocrit 45.9 % (37.0-47.0); Hemoglobin 14.9 g/dL (11.5-15.3); Lymphocytes % 38.9 %; Mean Corpuscular HGB Conc 32.5 g/dL (30.0-36.0); Mean Corpuscular Hemoglobin 30.2 pg (28.0-34.0); Mean Corpuscular Volume 93.1 fl (81-99); Mean Platelet Volume 10.3 fL (7.4-10.4); Monocytes # 0.8 10^3/uL (0.2-0.9); Monocytes % 8.1 %; Neutrophils # 5.17 10^3/uL (1.8-7.7); Neutrophils % 50.3 %; Nucleated Red Blood Cells % 0 %; Platelet Count 260 10^3/cmm (130-400); Red Blood Count 4.93 10^6/uL (4.1-5.3); Red Cell Distribution Width 13.6 % (12.1-15.1); White Blood Count 10.3 10^3/uL (4.0-10.0)
[2022-08-26 16:57] LABS: Troponin(5th) Baseline 6 ng/L (0-10)
[2022-08-26 16:59] LABS: Alanine Aminotransferase 22 U/L (0-33); Albumin Level 4.3 g/dL (3.5-5.2); Alkaline Phosphatase 84 U/L (35-105); Anion Gap 13.1 (5-19); Aspartate Amino Transferase 19 U/L (0-32); Blood Urea Nitrogen 18 mg/dL (6-20); Calcium 8.9 mg/dL (8.5-10.5); Carbon Dioxide 21 mmol/L (22-29); Chloride 105 mmol/L (98-107); Globulin 3.2 g/dL (1.3-4.6); Glomerular Filtration Rate 102.3 mL/min (90-130); Glucose 82 mg/dL (65-115); Osmolality Calculated 281 mOsm/kg (285-295); Potassium 4.1 mmol/L (3.5-5.1); Sodium 135 mmol/L (136-145); Total Bilirubin 0.2 mg/dL (0.15-1.2); Total Protein 7.5 g/dL (6.6-8.7)
[2022-08-26 17:25] VITALS: BP 138/77; PULSE 75; RESP 18; O2SAT 94
== END 2022-08-26 17:52 | disposition home or self-care (01) ==
PROVIDERS: Emergency Provider Family Medicine; PCP Nurse Practitioner Family
DX: R07.89 Other chest pain (principal); F17.210 Nicotine dependence, cigarettes, uncomplicated
CPT/HCPCS: 71045; 80053; 84484; 85025; 93005; 99285

== ENCOUNTER → 2023-07-25 09:54 | Outpatient (BNVA) | payer BC, SELFPAY | PROVIDERS: PCP Nurse Practitioner Family; Visit Provider Nurse Practitioner Family | DX: F41.8 Other specified anxiety disorders (principal); R53.83 Other fatigue; Z79.899 Other long term (current) drug therapy; E78.2 Mixed hyperlipidemia | CPT/HCPCS: 80053; 80061; 81003; 82306; 83036; 84443; 85025 ==

== ENCOUNTER 2023-07-26 09:08 | Outpatient (CLI) | payer BC, SELFPAY ==
--- NOTE | 2023-07-26 09:30 | MM_ITS ---
WS: [id number] DIAGNOSTIC BILATERAL DIGITAL BREAST TOMOSYNTHESIS MAMMOGRAPHY WITH CAD HISTORY: D05.11 - Intraductal carcinoma in situ of right breast COMPARISON: 03/17/2021, 03/21/2019 TECHNIQUE: Bilateral craniocaudad, mediolateral oblique, and mediolateral views are submitted with to mosynthesis and SM. Computer aided detection utilized. Breast composition: There are scattered areas of fibroglandular density. Postsurgical clips in the up per outer quadrant of the RIGHT breast. Previously described mass and spiculation has been removed. N o recurrent mass. Benign calcifications in each breast. IMPRESSION: MM/[place] [id number] BI-RADS: 2-Benign FOLLOW UP: 1 Year Follow-up
== END 2023-07-26 09:09 | disposition home or self-care (01) ==
LOC: RAD 09:08
PROVIDERS: PCP Nurse Practitioner Family; Visit Provider Nurse Practitioner Family
DX: D05.11 Intraductal carcinoma in situ of right breast (principal)
CPT/HCPCS: 77062; G0279

== ENCOUNTER → 2023-08-03 12:17 | Outpatient (BNVA) | payer BC, SELFPAY | PROVIDERS: PCP Nurse Practitioner Family; Visit Provider Nurse Practitioner Family | DX: R31.9 Hematuria, unspecified (principal) | CPT/HCPCS: 81003; 87086; 88112 ==

== ENCOUNTER → 2024-02-16 08:43 | Outpatient (BNVA) | payer BC, SELFPAY | PROVIDERS: PCP Nurse Practitioner Family; Visit Provider Nurse Practitioner Family | DX: E78.2 Mixed hyperlipidemia (principal); R53.83 Other fatigue; Z79.899 Other long term (current) drug therapy; D64.9 Anemia, unspecified | CPT/HCPCS: 80061; 81003; 82607; 82728; 83550; 85025 ==

== ENCOUNTER → 2025-03-12 15:44 | Outpatient (BNVA) | payer BC, SELFPAY | PROVIDERS: PCP Nurse Practitioner Family; Visit Provider Nurse Practitioner Family | DX: R06.00 Dyspnea, unspecified (principal); J22 Unspecified acute lower respiratory infection; J98.4 Other disorders of lung | CPT/HCPCS: 71046 ==